=== PATIENT | female | born 1950 | race Caucasian/White ===

== ENCOUNTER 2023-11-08 21:49 | Emergency (ER) | payer MEDICARE, SELFPAY ==
--- NOTE | ~2023-11-08 | XR_ITS ---
EXAM: XR shoulder LT min 2V DATE: 11/08/2023 22:47 HISTORY: Fall, injury,pain . COMPARISON: None available. FINDINGS: Decreased mineralization. Mildly comminuted, extra-articular, minimally displaced fracture of the surgical neck of the left humerus. Fracture lines appear to involve portions of the greater t uberosity. No lytic or blastic lesion. Joint spaces are maintained. No erosion or periosteal change. Soft tissues within normal limits. IMPRESSION: Comminuted, minimally displaced proximal left humeral fracture. Reviewed, dictated and finalized at location K.
--- NOTE | ~2023-11-08 | CT_ITS ---
EXAMINATION: CT brain wo con DATE: 11/08/2023 22:59 INDICATION: Fall, head injury . TECHNIQUE: Computed tomography (CT) of the head was performed without intravenous contrast. The mA wa s adjusted according to patient size. Iterative reconstruction technique was employed. The dose-lengt h product was 681.00 mGy-cm. COMPARISON: None. FINDINGS: No acute intracranial hemorrhage or extra-axial fluid collection. No hydrocephalus, mass, or herniation. No acute ischemic infarct. Unremarkable dural venous sinus attenuation. No acute osseous abnormality. The aerated spaces are clear. Mild atrophy and chronic white matter change. Atherosclerotic intracranial calcification. 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 IMPRESSION: No acute intracranial process. Reviewed, dictated and finalized at location K.
[2023-11-08 22:20] VITALS: BP 146/81; PULSE 76; RESP 20; TEMP 36.9; O2SAT 100
--- NOTE | 2023-11-08 22:39 | PC.NURSE ---
Patient taken to imaging via w/c from waiting room at this time.
--- NOTE | 2023-11-09 01:20 | ED.FALL ---
HPI - Fall General Chief Complaint: Fall Stated Complaint: Fall, hit head, left shoulder/arm pain Time Seen by Provider: 11/09/23 00:49 Source: patient Mode of arrival: ambulatory Limitations: no limitations History of Present Illness HPI Narrative: This is a 73-year-old female who presents to the ED for chief complaint of left shoulder injury tonight. She was taking the dog outside on the leash and the dog pulled very hard. States this caused her to fall down onto the left side. She reports severe pain to the left shoulder and decreased range of motion. Reports that she did hit her head but does not take any blood thinners. Denies LOC. Denies numbness or weakness Related Data Allergies Allergy/AdvReac Type Severity Reaction Status Date / Time No Known Allergies Allergy Verified 11/08/23 22:19 Review of Systems Review of Systems: All systems as dictated in HPI Exam Narrative: GENERAL: Well-appearing, well-nourished, and in no acute distress. HEAD: Normocephalic, atraumatic. EYES: PERRLA and EOMI. ENT: Nares clear, no rhinorrhea or epistaxis. Mucous membranes moist. Oropharynx without tonsillar hypertrophy exudate or other lesions. NECK: Supple. No adenopathy or masses. CHEST: No respiratory distress. Clear to auscultation. No wheezes rales or rhonchi HEART: Regular rate and rhythm. No murmur heard. Normal peripheral pulses. ABDOMEN: Soft, nontender, nondistended, normal active bowel sounds. MSK: LUE: Tenderness to left shoulder diffusely. No gross deformity. No bruising. Neurovascularly intact distally. Soft compartments. RLE: Benign SKIN: Warm, dry, no rash. NEURO: Alert and oriented x4. No focal deficits. PSYCH: Normal mood and affect. Course Vital Signs Vital signs: Vital Signs Temperature 98.4 F 11/08/23 22:20 Pulse Rate 76 11/08/23 22:20 Respiratory Rate 20 11/08/23 22:20 Blood Pressure 146/81 H 11/08/23 22:20 Pulse Oximetry 100 11/08/23 22:20 Oxygen Delivery Room Air 11/08/23 22:20 Temperature 98.4 F 11/08/23 22:20 Pulse Rate 69 11/09/23 01:50 Respiratory Rate 16 11/09/23 01:50 Blood Pressure 136/80 11/09/23 01:50 Pulse Oximetry 100 11/09/23 01:50 Oxygen Delivery Room Air 11/08/23 22:20 MDM - Fall MDM Narrative Medical decision making narrative: This is a send 3-year-old female who presents to the ED for chief complaint of left shoulder injury that occurred prior to arrival. Vitals are normal. Exam shows tenderness to the left shoulder but neurovascularly intact distally. No gross deformity. X-rays show comminuted left humeral surgical neck fracture that is minimally displaced. She was placed in shoulder immobilizer. Massey given here with decent pain relief. Rx for Massey given. She would lives in [place] and will follow-up with orthopedics there. Pt will be discharged in stable condition. Return precautions given and supportive measures discussed. Pt is understanding and agreeable with plan for discharge and follow-up with PCP. Discharge Plan Discharge Clinical Impression: Humeral surgical neck fracture Patient Disposition: Home, Self-Care Condition: Stable Instructions: Antibiotic Form, Shoulder Immobilizer (ED) Additional Instructions: Your exam and imaging today show shoulder fracture on the left side. Please follow-up with your orthopedic doctor. Use shoulder immobilizer as much as possible. Take Tylenol and ibuprofen for regular pain control but Massey for breakthrough pain. If you have any new or worsening symptoms please return to the ER for further evaluation. Prescriptions: New hydrocodone-acetaminophen 5-325 mg tablet 1 tablet PO Q8H PRN (Reason: pain) Qty: 14 0RF Follow-up/Referrals: PHYSICIAN NOT ON STAFF,NONSTAFF [Primary Care Provider] - Time of Disposition: :28
[2023-11-09] MEDS: HYDROcodone/acetaminophen (*CRX) 5-325 MG TABLET 1 TAB PO (01:27)
[2023-11-09 01:50] VITALS: BP 136/80; PULSE 69; RESP 16; O2SAT 100
== END 2023-11-09 01:50 | disposition home or self-care (01) ==
PROVIDERS: Emergency Provider Physician Assistant
DX: S42.212A Unspecified displaced fracture of surgical neck of left humerus, initial encounter for closed fracture (principal); W18.39XA Other fall on same level, initial encounter; Y93.K1 Activity, walking an animal
CPT/HCPCS: 70450; 73030; 99284; A4565; A9270